=== PATIENT | female | born 1945 | race Caucasian/White ===

== ENCOUNTER → 2016-09-15 | Outpatient (CLI) | payer MEDICARE ==
[~2016-09-15] MED LIST: ATOR10TA15 PO; CALC1TAB12 PO; CALC600T7 PO; DICL1GEL7 TOPICAL; DICL1SOL3 TOPICAL; ESSE250T; ESTR0.5T3 PO; FEXO180T PO; FEXO1TAB97 PO; FLUT50SP EACH NARE; LEVO88TA2 PO; MAGN250T2 PO; MECL-62 PO; METR500T10 PO; MULTTAB67 PO; PLAQ200T PO; PREM0.45 PO; RANI150C PO; VITA100018 PO; VITAL REDS PO; [UNRECOGNIZED DRUG - CODE] PO; [UNRECOGNIZED DRUG - CODE] TOPICAL; [UNRECOGNIZED DRUG - OTHER] PO
[2016-09-15 09:26] LABS: FREE T4 1.1 NG/DL (0.76-1.46)
== END ==
LOC: CLAB 08:23
DX: E89.0 Postprocedural hypothyroidism (principal); E83.51 Hypocalcemia
CPT/HCPCS: 36415; 82306; 82310; 83970; 84439; 84443

== ENCOUNTER 2016-11-15 12:09 | Emergency (ER) | payer MEDICARE ==
[~2016-11-15] VITALS: Ht 165.1 cm; Wt 87.0 kg
[~2016-11-15 12:09] MED LIST changes: -CALC600T7 PO; -DICL1GEL7 TOPICAL; -DICL1SOL3 TOPICAL; -ESSE250T; -ESTR0.5T3 PO; -FEXO180T PO; -MAGN250T2 PO; -PLAQ200T PO; -VITAL REDS PO; -[UNRECOGNIZED DRUG - CODE] PO; -[UNRECOGNIZED DRUG - OTHER] PO
[2016-11-15 12:11] VITALS: BP 182/85; PULSE 82; RESP 16; TEMP 97.3; O2SAT 98
[2016-11-15] MEDS ORDERED: SODIUM CHLOR 0.9% 1000 ML INJ 1,000 ML IV ONE (13:05)
--- NOTE | 2016-11-15 13:05 | PD ---
HPI Chief Complaint: General Weakness Time Seen by Provider: 13:00 Travel History International Travel<30 days: No Contact w/Intl Traveler<30days: No Traveled to known affect area: No History of Present Illness HPI 71-year-old female presents the emergency department with generalized weakness and lightheadedness with standing which she states started last . Patient states she's been taking a supplement which "makes her urinate" for approximately 1 month, which may be to blame. Patient has history of parathyroid and thyroid disease for which she takes Synthroid and high-dose calcium and vitamin D. Her only other medication is Lipitor. She denies pain, chest pain, shortness of breath, fever, chills, urinary symptoms other than frequency, or abdominal pain. Patient states she felt so weak this morning she couldn't lift her ipad. Patient has no nausea or vomiting. She hasn't no diarrhea. She is allergic to Celebrex, Compazine, Neosporin, sulfa, and hair dye. PFSH Past Medical History Arthritis: No Asthma: No Autoimmune Disease: No Blood Disorders: No Heart Rhythm Problems: No Cancer: No Cardiovascular Problems: Yes ([id number]) High Cholesterol: Yes (NO-MEDS) Chemotherapy: No Chest Pain: No Congestive Heart Failure: No COPD: No Cerebrovascular Accident: No Endocrine: No GERD: Yes Glaucoma: No Genitourinary: No Headaches: No Hepatitis: Yes (1989) Hiatal Hernia: No Hypertension: Yes Immune Disorder: No Musculoskeletal: No Neurologic: No Psychiatric: No Reproductive: No Respiratory: No Migraines: No Myocardial Infarction: No Radiation Therapy: No Seizures: No Sickle Cell Disease: No Sleep Apnea: No Ulcer: No Past Surgical History Abdominal Surgery: Yes (THIS ADM) AICD: Yes (REFLUX) Appendectomy: No Arteriovenous Shunt: No Cardiac Surgery: Yes (HTN=CHOLESTEROL) Cholecystectomy: No Ear Surgery: No Endocrine Surgery: No Eye Surgery: No Genitourinary Surgery: No Gynecologic Surgery: Yes (D+C) Joint Replacement: No Oral Surgery: No Pacemaker: No Thoracic Surgery: No Social History Alcohol Use: Yes ([id number]) Tobacco Use: No Substance Use: No Allergies-Medications (Allergen,Severity, Reaction): Coded Allergies: Celebrex (Verified Allergy, Intermediate, RASH, 08/16/16) Rash all over Compazine (Verified Allergy, Intermediate, HYPOTENSION, 08/16/16) Neosporin (Verified Allergy, Intermediate, Rash, 08/16/16) Sulfa (Verified Allergy, Intermediate, RASH, 08/16/16) Rash all over Uncoded Allergies: hair dye (Adverse Reaction, Intermediate, itiching, 08/29/13) Reported Meds & Prescriptions Reported Meds & Active Scripts Active Reported Fexofenadine (Fexofenadine HCl) 180 Mg Tab 360 Mg PO Q12HR Adoxa (Doxycycline (Monohydrate)) 50 Mg Tab 25 Mg PO BID Magnesium 250 Mg Tab 250 Mg PO DAILY Plaquenil (Hydroxychloroquine Sulfate) 200 Mg Tab 200 Mg PO DAILY Take with food Estrace (Estradiol) 0.5 Mg Tab 0.5 Mg PO HS Calcium/Vitamin D (Calcium Carbonate-Cholecalciferol) 600-400 Mg-Unit Tab 3 Tab PO BID Atorvastatin (Atorvastatin Calcium) 10 Mg Tab 10 Mg PO DAILY [Prebiothrive] 1 Each PO DAILY [Vital Reds] 1 Each PO DAILY Ranitidine (Ranitidine HCl) 150 Mg Cap 150 Mg PO BID Levothyroxine (Levothyroxine Sodium) 88 Mcg Tab 88 Mcg PO DAILY Vitamin D3 (Cholecalciferol) 1,000 Unit Tab 1,000 Units PO DAILY Meclizine (Meclizine HCl) 25 Mg Tab 25 Mg PO Q8HR PRN Fluticasone Nasal [place] 50 Mcg/Act Naspr 2 [place] EACH NARE DAILY 50 mcg/spray Temovate Topical (Clobetasol Propionate) 0.05% Soln 1 Applic TOPICAL DAILY PRN Review of Systems Except as stated in HPI: all other systems reviewed are Neg General / Constitutional: No: Fever, Chills, Weight Gain, Weight Loss Eyes: No: Visual changes HENT: No: Headaches, Sore Throat, Rhinitis, Rhinorrhea, Congestion, Nosebleed, Neck Stiffness, Neck Pain, Ear Discharge, Earache Cardiovascular: No: Chest Pain or Discomfort, Palpitations, Irregular Rhythm, Tachycardia, Diaphoresis, Syncope, Dyspnea on exertion, Claudication Respiratory: No: Cough, Shortness of Breath, Wheezing Gastrointestinal: No: Nausea, Vomiting, Diarrhea, Abdominal Pain Genitourinary: Positive: Frequency, No: Urgency, Dysuria, Nocturia, Hematuria , Decreased Urinary Output Musculoskeletal: Positive: Weakness, No: Myalgias, Arthralgias, Limited ROM, Pain Skin: No Rash Neurologic: No: Weakness, Dizziness, Syncope, Focal Abnormalities, Coordination Problem, Tremor, Ataxia, Headache, Change in Mentation, Slurred Speech, Paresthesia, Incontinence, Seizures, Sensory Disturbance Psychiatric: No: Depression Endocrine: No: Polydipsia Hematologic/Lymphatic: No: Easy Bruising Physical Exam Narrative GENERAL: Patient is ambulatory to the room in no acute distress. SKIN: Warm and dry. Normal color. Normal turgor. HEAD: Atraumatic. Normocephalic. EYES: Pupils equal and round. No scleral icterus. No injection or drainage. ENT: No nasal bleeding or discharge. Mucous membranes pink and moist. Pharynx is unremarkable. NECK: Trachea midline. Neck is supple nontender without palpable thyroid. CARDIOVASCULAR: Regular rate and rhythm. No murmurs gallops or rubs. RESPIRATORY: No accessory muscle use. Clear to auscultation. Breath sounds equal bilaterally. GASTROINTESTINAL: Abdomen soft, non-tender, nondistended. Hepatic and splenic margins not palpable. MUSCULOSKELETAL: Extremities without clubbing, cyanosis, or edema. No obvious deformities. NEUROLOGICAL: Awake and alert. No obvious cranial nerve deficits. Motor grossly within normal limits. Five out of 5 muscle strength in the arms and legs. Normal speech. PSYCHIATRIC: Appropriate mood and affect; insight and judgment normal. Data Data Last Documented VS Vital Signs Date Time Temp Pulse Resp B/P Pulse Ox O2 Delivery O2 Flow Rate FiO2 11/15/16 14:19 68 16 187/84 99 Room Air 11/15/16 12:11 97.3 Orders Electrocardiogram (11/15/16 13:05) Complete Blood Count With Diff (11/15/16 13:05) Comprehensive Metabolic Panel (11/15/16 13:05) Magnesium (Mg) (11/15/16 13:05) Ckmb (Isoenzyme) Profile (11/15/16 13:05) Troponin I (11/15/16 13:05) Act Partial Throm Time (Ptt) (11/15/16 13:05) Prothrombin Time / Inr (Pt) (11/15/16 13:05) Urinalysis - C+S If Indicated (11/15/16 13:05) Chest, Single Ap (11/15/16 13:05) Blood Glucose (11/15/16 13:05) Ecg Monitoring (11/15/16 13:05) Iv Access Insert/Monitor (11/15/16 13:05) Oximetry (11/15/16 13:05) Sodium Chloride 0.9% Flush (Ns Flush) (11/15/16 13:15) Sodium Chlor 0.9% 1000 Ml Inj (Ns 1000 M (11/15/16 13:05) Orthostatic Vital Signs (11/15/16 13:05) Thyroid Stimulating Hormone (11/15/16 13:07) Labs Laboratory Tests Test 11/15/16 11/15/16 13:15 14:30 White Blood Count 7.0 TH/MM3 Red Blood Count 5.08 MIL/MM3 Hemoglobin 15.3 GM/DL Hematocrit 44.0 % Mean Corpuscular Volume 86.6 FL Mean Corpuscular Hemoglobin 30.2 PG Mean Corpuscular Hemoglobin 34.9 % Concent Red Cell Distribution Width 13.1 % Platelet Count 244 TH/MM3 Mean Platelet Volume 8.1 FL Neutrophils (%) (Auto) 70.0 % Lymphocytes (%) (Auto) 18.6 % Monocytes (%) (Auto) 9.6 % Eosinophils (%) (Auto) 0.7 % Basophils (%) (Auto) 1.1 % Neutrophils # (Auto) 4.9 TH/MM3 Lymphocytes # (Auto) 1.3 TH/MM3 Monocytes # (Auto) 0.7 TH/MM3 Eosinophils # (Auto) 0.0 TH/MM3 Basophils # (Auto) 0.1 TH/MM3 CBC Comment DIFF FINAL Differential Comment Prothrombin Time 10.6 SEC Prothromb Time International 1.0 RATIO Ratio Activated Partial 26.8 SEC Thromboplast Time Sodium Level 140 MEQ/L Potassium Level 3.8 MEQ/L Chloride Level 102 MEQ/L Carbon Dioxide Level 29.0 MEQ/L Anion Gap 9 MEQ/L Blood Urea Nitrogen 11 MG/DL Creatinine 0.78 MG/DL Estimat Glomerular Filtration 72 ML/MIN Rate Random Glucose 95 MG/DL Calcium Level 8.9 MG/DL Magnesium Level 2.0 MG/DL Total Bilirubin 0.4 MG/DL Aspartate Amino Transf 21 U/L (AST/SGOT) Alanine Aminotransferase 30 U/L (ALT/SGPT) Alkaline Phosphatase 60 U/L Total Creatine Kinase 75 U/L Troponin I LESS THAN 0.02 NG/ML Total Protein 8.0 GM/DL Albumin 4.0 GM/DL Thyroid Stimulating Hormone 1.720 uIU/ML 3rd Gen Urine Color LIGHT-YELLOW Urine Turbidity CLEAR Urine pH 5.5 Urine Specific [place] 1.005 Urine Protein NEG mg/dL Urine Glucose (UA) NEG mg/dL Urine Ketones NEG mg/dL Urine Occult Blood NEG Urine Nitrite NEG Urine Bilirubin NEG Urine Urobilinogen LESS THAN 2.0 MG/DL Urine Leukocyte Esterase MOD Urine RBC LESS THAN 1 /hpf Urine WBC 3 /hpf Urine Transitional Epithelial <1 /hpf Cells Urine Bacteria RARE /hpf Microscopic Urinalysis Comment CULT NOT INDICATED MDM Medical Decision Making Medical Screen Exam Complete: Yes Emergency Medical Condition: Yes Differential Diagnosis Electrolyte imbalance. Dehydration. Weakness. Hypothyroidism. Narrative Course Patient is medically stable at time of exam. EKG is performed showing normal sinus rhythm at 66 bpm without significant changes. This was reviewed with Dr. Quintero. Labs ordered including a fingerstick glucose, CBC, CMP, TSH, troponin, magnesium and urinalysis. Chest x-ray is performed showing no significant findings are radiologist. Orthostatic vital signs are performed. Patient is given 1000 mL stone normal saline bolus IV. Labs show normal CBC, normal CMP, troponin of less than 0.02, and TSH is normal at 1.72. Urinalysis is unremarkable. Patient is felt stable to be discharged home with follow-up with her primary care physician. I recommend the patient that she stop any [id number] supplements. She should hydrate and follow up as needed. Diagnosis Primary Impression: Weakness generalized Additional Impression: Dehydration, mild Referrals: Primary Care Physician Patient Instructions: Dehydration (ED), General Instructions Additional Instructions: All labs and testing are within normal limits. Patient is felt stable to be discharged home with follow-up with her primary care physician. I recommend the patient that she stop any [id number] supplements. She should hydrate and follow up as needed. Med/Other Pt SpecificInfo: No Meds Exist/No RX given Disposition: DISCHARGE HOME Condition: Stable aAshish Kaiser Nov 15, 2016 13:05
[2016-11-15 13:09] VITALS: O2SAT 99
[2016-11-15] MEDS ORDERED: SODIUM CHLORIDE 0.9% FLUSH 5 ML FLUSH IVF PRN (13:15)
[2016-11-15 13:29] LABS: AUTOMATED NEUTROPHIL # 4.9 TH/MM3 (1.8-7.7); BASOPHIL # 0.1 TH/MM3 (0-0.2); BASOPHIL % 1.1 % (0.0-2.0); EOSINOPHIL % 0.7 % (0.0-4.0); HEMO FLAGS DIFF FINAL; LYMPH % 18.6 % (9.0-44.0); LYMPHOCYTE # 1.3 TH/MM3 (1.0-4.8); MEAN CELL VOLUME 86.6 FL (80.0-100.0); MEAN CORPUSCULAR HEMOGLOBIN 30.2 PG (27.0-34.0); MEAN CORPUSCULAR HGB CONC 34.9 % (32.0-36.0); MONO % 9.6 % (0.0-8.0); PLATELET COUNT 244 TH/MM3 (150-450); RED BLOOD COUNT 5.08 MIL/MM3 (4.00-5.30); RED CELL DISTRIBUTION WIDTH 13.1 % (11.6-17.2)
[2016-11-15 13:38] LABS: APTT (PATIENT) 26.8 SEC (24.3-30.1); PROTHROMBIN TIME - PATIENT 10.6 SEC (9.8-11.6)
[2016-11-15 13:54] LABS: ALT (GPT) 30 U/L (10-53); ANION GAP 9 MEQ/L (5-15); AST (GOT) 21 U/L (15-37); BLOOD UREA NITROGEN 11 MG/DL (7-18); CHLORIDE 102 MEQ/L (98-107); GLOMERULAR FILTRATION RATE 72 ML/MIN (>89); POTASSIUM 3.8 MEQ/L (3.5-5.1); SODIUM (NA) 140 MEQ/L (136-145)
[2016-11-15 13:58] LABS: ALKALINE PHOSPHATASE 60 U/L (45-117); TOTAL BILIRUBIN ADULT 0.4 MG/DL (0.2-1.0)
--- NOTE | 2016-11-15 14:03 | RADRPT ---
EXAM DATE/TIME: 11/15/2016 13:15 [facility] COMPARISON: No previous studies available for comparison. INDICATIONS : Chest palpitations, chest pains left side. MEDICAL HISTORY : None. SURGICAL HISTORY : None. ENCOUNTER: Initial ACUITY: 2 days PAIN SCORE: 6/10 LOCATION: Left chest FINDINGS: A single view of the chest demonstrates the lungs to be symmetrically aerated without evidence of mas s, infiltrate or effusion. The cardiomediastinal contours are unremarkable. Osseous structures are intact. CONCLUSION: No acute disease. Brian Charles MD on November 15, 2016 at 14:01 Board Certified Radiologist. This report was verified electronically.
[2016-11-15 14:19] VITALS: BP 187/84; PULSE 68; RESP 16; O2SAT 99
[2016-11-15 14:23] LABS: CREATINE KINASE 75 U/L (26-192)
[2016-11-15] MEDS ORDERED: VITAL REDS PO (14:41)
[2016-11-15] MEDS ORDERED: [UNRECOGNIZED DRUG - OTHER] PO (14:41)
[2016-11-15] MEDS ORDERED: ATOR10TA15 PO (14:43)
[2016-11-15] MEDS ORDERED: CALC600T7 PO (14:50)
[2016-11-15] MEDS ORDERED: ESTR0.5T3 PO (14:50)
[2016-11-15] MEDS ORDERED: MAGN250T2 PO (14:51)
[2016-11-15] MEDS ORDERED: PLAQ200T PO (14:51)
[2016-11-15] MEDS ORDERED: ESSE250T (14:51)
[2016-11-15] MEDS ORDERED: [UNRECOGNIZED DRUG - CODE] PO (14:53)
[2016-11-15] MEDS ORDERED: FEXO180T PO (15:00)
[2016-11-15 15:02] LABS: BACTERIA, URINE RARE /hpf; BLOOD, URINE NEG (NEG); COMMENT (UR) CULT NOT INDICATED; CULTURE IF INDICATED CULT NOT INDICATED; GLUCOSE,URINE NEG (NEG); KETONE, URINE NEG (NEG); NITRITE,URINE NEG (NEG); PH, URINE 5.5 (5.0-8.5); TRANSITIONAL EPI CELLS, URINE <1 /hpf; URINE COLOR LIGHT-YELLOW (YELLW/STRAW)
[2016-11-15 16:09] VITALS: BP 172/79; PULSE 69; RESP 16; O2SAT 99
--- NOTE | 2016-11-16 15:45 | EKG ---
Date Performed: 11/15/2016 Time Performed: 13:21:39 PTAGE: 71 years EKG: Sinus rhythm NORMAL ECG PREVIOUS TRACING : 09/28/2006 09.51 No significant change from previous tracing noted. DOCTOR: Thomas Alonso Interpretating Date/Time 11/16/2016 15:43:35
[2017-01-04] MEDS ORDERED: FLUT50SP EACH NARE (15:14)
[2017-02-01] MEDS ORDERED: DICL1SOL3 TOPICAL (14:52)
[2017-02-14] MEDS ORDERED: DICL1GEL7 TOPICAL (10:38)
== END 2016-11-15 16:10 | disposition home or self-care (01) ==
LOC: NEPE 12:09
DX: E86.0 Dehydration (principal); R53.1 Weakness; I10 Essential (primary) hypertension
CPT/HCPCS: 71010; 80053; 81001; 82550; 83735; 84443; 84484; 85025; 85610; 85730; 93005; 96360; 99284; J7030

== ENCOUNTER → 2016-11-25 | Outpatient (CLI) | payer MEDICARE ==
[~2016-11-25] MED LIST changes: -CALC1TAB12 PO; +CALC600T7 PO; +DICL1GEL7 TOPICAL; +DICL1SOL3 TOPICAL; +ESTR0.5T3 PO; +FEXO180T PO; -FEXO1TAB97 PO; +MAGN250T2 PO; -METR500T10 PO; -MULTTAB67 PO; +PLAQ200T PO; -PREM0.45 PO; +VITAL REDS PO; +[UNRECOGNIZED DRUG - CODE] PO; +[UNRECOGNIZED DRUG - OTHER] PO
[2016-11-25 13:51] LABS: AUTOMATED NEUTROPHIL # 2.7 TH/MM3 (1.8-7.7); BASOPHIL # 0.1 TH/MM3 (0-0.2); BASOPHIL % 1.3 % (0.0-2.0); EOSINOPHIL # 0.1 TH/MM3 (0-0.4); EOSINOPHIL % 1.6 % (0.0-4.0); HEMATOCRIT 41.7 % (35.0-46.0); HEMO FLAGS DIFF FINAL; LYMPH % 24.2 % (9.0-44.0); MEAN CELL VOLUME 87.1 FL (80.0-100.0); MEAN CORPUSCULAR HEMOGLOBIN 29.5 PG (27.0-34.0); MEAN CORPUSCULAR HGB CONC 33.8 % (32.0-36.0); MONO % 9.1 % (0.0-8.0); NEUT % 63.8 % (16.0-70.0); PLATELET COUNT 225 TH/MM3 (150-450); RED BLOOD COUNT 4.79 MIL/MM3 (4.00-5.30); RED CELL DISTRIBUTION WIDTH 13.2 % (11.6-17.2); WHITE BLOOD COUNT 4.2 TH/MM3 (4.0-11.0)
[2016-11-25 14:32] LABS: ALKALINE PHOSPHATASE 53 U/L (45-117); ALT (GPT) 30 U/L (10-53); ANION GAP 6 MEQ/L (5-15); AST (GOT) 23 U/L (15-37); BICARBONATE 29.4 MEQ/L (21.0-32.0); BLOOD UREA NITROGEN 8 MG/DL (7-18); CHLORIDE 106 MEQ/L (98-107); GLOMERULAR FILTRATION RATE 82 ML/MIN (>89); GLUCOSE,FASTING 93 MG/DL (74-99); POTASSIUM 3.8 MEQ/L (3.5-5.1); SODIUM (NA) 141 MEQ/L (136-145); TOTAL BILIRUBIN ADULT 0.5 MG/DL (0.2-1.0)
[2016-11-29 15:52] LABS: ANA IFA TITER ND titer (()); ANA SER QL NEGATIVE (NEGATIVE); SJOGRENS AB SSA <1.0 NEG AI (<1.0 NEGATIVE); SJOGRENS AB SSB <1.0 NEG AI (<1.0 NEGATIVE)
[2016-11-30 03:51] LABS: DS DNA AB(CRITHIDIA) NEGATIVE (NEGATIVE); DS DNA AB(CRITHIDIA)TITER ND (<1:10)
[2016-11-30 15:54] LABS: RHEUMATOID FACTOR 10 IU/mL (<14)
== END ==
LOC: CLAB 13:02
PROVIDERS: ATTEND Allergy & Immunology
DX: L50.8 Other urticaria (principal)
CPT/HCPCS: 36415; 80053; 85025; 86038; 86039; 86147; 86235; 86255; 86256; 86431

== ENCOUNTER → 2017-01-14 | Outpatient (CLI) | payer MEDICARE ==
[2017-01-14 11:30] LABS: FREE T4 1.39 NG/DL (0.76-1.46)
== END ==
LOC: CLAB 10:06
DX: E89.0 Postprocedural hypothyroidism (principal); E21.0 Primary hyperparathyroidism; E83.51 Hypocalcemia
CPT/HCPCS: 36415; 82306; 82310; 84439; 84443

== ENCOUNTER → 2017-01-27 | Outpatient (CLI) | payer MEDICARE ==
[2017-01-27 10:38] LABS: AUTOMATED NEUTROPHIL # 2.9 TH/MM3 (1.8-7.7); BASOPHIL # 0.1 TH/MM3 (0-0.2); BASOPHIL % 1.3 % (0.0-2.0); EOSINOPHIL # 0.1 TH/MM3 (0-0.4); EOSINOPHIL % 1.9 % (0.0-4.0); HEMATOCRIT 39.4 % (35.0-46.0); HEMO FLAGS DIFF FINAL; LYMPH % 24.3 % (9.0-44.0); LYMPHOCYTE # 1.1 TH/MM3 (1.0-4.8); MEAN CELL VOLUME 87.7 FL (80.0-100.0); MEAN CORPUSCULAR HEMOGLOBIN 29.6 PG (27.0-34.0); MEAN CORPUSCULAR HGB CONC 33.8 % (32.0-36.0); MONO % 10.5 % (0.0-8.0); PLATELET COUNT 201 TH/MM3 (150-450); RED CELL DISTRIBUTION WIDTH 13.4 % (11.6-17.2); WHITE BLOOD COUNT 4.6 TH/MM3 (4.0-11.0)
[2017-01-27 11:00] LABS: ALT (GPT) 31 U/L (10-53); ANION GAP 6 MEQ/L (5-15); AST (GOT) 25 U/L (15-37); BICARBONATE 28.5 MEQ/L (21.0-32.0); BLOOD UREA NITROGEN 11 MG/DL (7-18); CHLORIDE 109 MEQ/L (98-107); GLOMERULAR FILTRATION RATE 83 ML/MIN (>89); GLUCOSE,FASTING 82 MG/DL (74-99); POTASSIUM 3.9 MEQ/L (3.5-5.1); SODIUM (NA) 143 MEQ/L (136-145)
[2017-01-27 11:02] LABS: ALKALINE PHOSPHATASE 54 U/L (45-117); TOTAL BILIRUBIN ADULT 0.4 MG/DL (0.2-1.0)
== END ==
LOC: CLAB 10:09
PROVIDERS: ATTEND Allergy & Immunology
DX: R76.8 Other specified abnormal immunological findings in serum (principal)
CPT/HCPCS: 36415; 80053; 85025; 86803; 87340

== ENCOUNTER → 2017-02-11 | Outpatient (CLI) | payer MEDICARE ==
[2017-02-11 09:14] LABS: AUTOMATED NEUTROPHIL # 2.6 TH/MM3 (1.8-7.7); BASOPHIL # 0.1 TH/MM3 (0-0.2); BASOPHIL % 1.1 % (0.0-2.0); EOSINOPHIL # 0.1 TH/MM3 (0-0.4); EOSINOPHIL % 2.2 % (0.0-4.0); HEMATOCRIT 39.5 % (35.0-46.0); HEMO FLAGS DIFF FINAL; LYMPH % 29.5 % (9.0-44.0); LYMPHOCYTE # 1.4 TH/MM3 (1.0-4.8); MEAN CELL VOLUME 87.2 FL (80.0-100.0); MEAN CORPUSCULAR HEMOGLOBIN 30.5 PG (27.0-34.0); MEAN CORPUSCULAR HGB CONC 34.9 % (32.0-36.0); MONO % 10.7 % (0.0-8.0); NEUT % 56.5 % (16.0-70.0); PLATELET COUNT 214 TH/MM3 (150-450); RED BLOOD COUNT 4.53 MIL/MM3 (4.00-5.30); RED CELL DISTRIBUTION WIDTH 13.6 % (11.6-17.2); WHITE BLOOD COUNT 4.6 TH/MM3 (4.0-11.0)
[2017-02-11 09:26] LABS: ANION GAP 7 MEQ/L (5-15); AST (GOT) 23 U/L (15-37); BICARBONATE 27.7 MEQ/L (21.0-32.0); BLOOD UREA NITROGEN 15 MG/DL (7-18); CHLORIDE 105 MEQ/L (98-107); GLOMERULAR FILTRATION RATE 79 ML/MIN (>89); GLUCOSE,FASTING 84 MG/DL (74-99); POTASSIUM 3.8 MEQ/L (3.5-5.1); SODIUM (NA) 140 MEQ/L (136-145)
[2017-02-11 09:27] LABS: ALT (GPT) 34 U/L (10-53)
[2017-02-11 09:29] LABS: ALKALINE PHOSPHATASE 50 U/L (45-117); LDL CHOLESTEROL 110 MG/DL (0-99); TOTAL BILIRUBIN ADULT 0.5 MG/DL (0.2-1.0)
== END ==
LOC: CLAB 08:21
PROVIDERS: ATTEND Family Medicine
DX: E78.5 Hyperlipidemia, unspecified (principal); D64.9 Anemia, unspecified
CPT/HCPCS: 36415; 80053; 80061; 85025

== ENCOUNTER → 2017-04-28 | Outpatient (CLI) | payer MEDICARE ==
[~2017-04-28] MED LIST changes: -DICL1SOL3 TOPICAL
[2017-04-28 09:15] LABS: AUTOMATED NEUTROPHIL # 3.2 TH/MM3 (1.8-7.7); BASOPHIL # 0.1 TH/MM3 (0-0.2); BASOPHIL % 1.2 % (0.0-2.0); EOSINOPHIL # 0.2 TH/MM3 (0-0.4); EOSINOPHIL % 3.2 % (0.0-4.0); HEMATOCRIT 40.5 % (35.0-46.0); HEMO FLAGS DIFF FINAL; LYMPHOCYTE # 1.3 TH/MM3 (1.0-4.8); MEAN CORPUSCULAR HEMOGLOBIN 30.6 PG (27.0-34.0); MONO % 10.6 % (0.0-8.0); PLATELET COUNT 220 TH/MM3 (150-450); RED BLOOD COUNT 4.49 MIL/MM3 (4.00-5.30); RED CELL DISTRIBUTION WIDTH 13.3 % (11.6-17.2); WHITE BLOOD COUNT 5.3 TH/MM3 (4.0-11.0)
[2017-04-28 09:45] LABS: ANION GAP 6 MEQ/L (5-15); AST (GOT) 27 U/L (15-37); BICARBONATE 28.8 MEQ/L (21.0-32.0); BLOOD UREA NITROGEN 13 MG/DL (7-18); CHLORIDE 106 MEQ/L (98-107); GLOMERULAR FILTRATION RATE 82 ML/MIN (>89); GLUCOSE,FASTING 89 MG/DL (74-99); SODIUM (NA) 141 MEQ/L (136-145)
[2017-04-28 09:51] LABS: ALKALINE PHOSPHATASE 63 U/L (45-117); ALT (GPT) 34 U/L (10-53); TOTAL BILIRUBIN ADULT 0.5 MG/DL (0.2-1.0)
== END ==
LOC: CLAB 08:14
PROVIDERS: ATTEND Allergy & Immunology
DX: R76.8 Other specified abnormal immunological findings in serum (principal); Z79.899 Other long term (current) drug therapy
CPT/HCPCS: 36415; 80053; 85025; 86140

== ENCOUNTER → 2017-05-31 | Outpatient (CLI) | payer MEDICARE ==
[2017-05-31 09:30] LABS: FREE T4 1.18 NG/DL (0.76-1.46)
== END ==
LOC: CLAB 08:33
DX: E89.0 Postprocedural hypothyroidism (principal); E83.51 Hypocalcemia
CPT/HCPCS: 36415; 82306; 82310; 84439; 84443

== ENCOUNTER → 2017-08-08 | Outpatient (CLI) | payer MEDICARE ==
[2017-08-08 09:26] LABS: ANION GAP 4 MEQ/L (5-15); AST (GOT) 20 U/L (15-37); BLOOD UREA NITROGEN 8 MG/DL (7-18); CHLORIDE 106 MEQ/L (98-107); GLOMERULAR FILTRATION RATE 82 ML/MIN (>89); GLUCOSE,FASTING 87 MG/DL (74-99); POTASSIUM 3.9 MEQ/L (3.5-5.1); SODIUM (NA) 140 MEQ/L (136-145)
[2017-08-08 09:29] LABS: ALKALINE PHOSPHATASE 64 U/L (45-117); ALT (GPT) 32 U/L (10-53); HDL CHOLESTEROL 68.4 MG/DL (40.0-60.0); LDL CHOLESTEROL 78 MG/DL (0-99); TOTAL BILIRUBIN ADULT 0.4 MG/DL (0.2-1.0)
== END ==
LOC: CLAB 08:37
PROVIDERS: ATTEND Family Medicine
DX: E78.5 Hyperlipidemia, unspecified (principal)
CPT/HCPCS: 36415; 80053; 80061

== ENCOUNTER → 2017-08-12 | Outpatient (CLI) | payer MEDICARE ==
[~2017-08-12] MED LIST changes: +BENZ100 PO; +MEDR4PAK PO; +TRIA40P I-ARTICULR
[2017-08-12 11:05] LABS: AUTOMATED NEUTROPHIL # 7.8 TH/MM3 (1.8-7.7); BASOPHIL % 0.4 % (0.0-2.0); EOSINOPHIL % 0.2 % (0.0-4.0); HEMATOCRIT 40.2 % (35.0-46.0); HEMO FLAGS DIFF FINAL; LYMPH % 12.9 % (9.0-44.0); LYMPHOCYTE # 1.3 TH/MM3 (1.0-4.8); MEAN CELL VOLUME 88.3 FL (80.0-100.0); MEAN CORPUSCULAR HEMOGLOBIN 30.2 PG (27.0-34.0); MEAN CORPUSCULAR HGB CONC 34.2 % (32.0-36.0); MONO % 7.3 % (0.0-8.0); NEUT % 79.2 % (16.0-70.0); PLATELET COUNT 235 TH/MM3 (150-450); RED BLOOD COUNT 4.55 MIL/MM3 (4.00-5.30); RED CELL DISTRIBUTION WIDTH 13.7 % (11.6-17.2); WHITE BLOOD COUNT 9.9 TH/MM3 (4.0-11.0)
[2017-08-12 11:32] LABS: ANION GAP 6 MEQ/L (5-15); AST (GOT) 24 U/L (15-37); BICARBONATE 26.3 MEQ/L (21.0-32.0); BLOOD UREA NITROGEN 14 MG/DL (7-18); CHLORIDE 108 MEQ/L (98-107); GLOMERULAR FILTRATION RATE 85 ML/MIN (>89); GLUCOSE,FASTING 88 MG/DL (74-99); SODIUM (NA) 140 MEQ/L (136-145)
[2017-08-12 11:36] LABS: ALKALINE PHOSPHATASE 65 U/L (45-117); ALT (GPT) 30 U/L (10-53); TOTAL BILIRUBIN ADULT 0.4 MG/DL (0.2-1.0)
== END ==
LOC: CLAB 10:18
PROVIDERS: ATTEND Allergy & Immunology
DX: R76.8 Other specified abnormal immunological findings in serum (principal); M25.512 Pain in left shoulder
CPT/HCPCS: 36415; 80053; 85025; 86225

== ENCOUNTER → 2017-10-25 | Outpatient (CLI) | payer MEDICARE ==
[~2017-10-25] MED LIST changes: +PANT20 PO; -TRIA40P I-ARTICULR; -[UNRECOGNIZED DRUG - CODE] PO
[2017-10-25 13:59] LABS: AUTOMATED NEUTROPHIL # 4.2 TH/MM3 (1.8-7.7); BASOPHIL # 0.1 TH/MM3 (0-0.2); BASOPHIL % 1.4 % (0.0-2.0); EOSINOPHIL # 0.1 TH/MM3 (0-0.4); EOSINOPHIL % 1.4 % (0.0-4.0); HEMATOCRIT 40.2 % (35.0-46.0); HEMOGLOBIN 13.8 GM/DL (11.6-15.3); LYMPH % 20.6 % (9.0-44.0); LYMPHOCYTE # 1.3 TH/MM3 (1.0-4.8); MEAN CELL VOLUME 88.1 FL (80.0-100.0); MEAN CORPUSCULAR HEMOGLOBIN 30.3 PG (27.0-34.0); MEAN CORPUSCULAR HGB CONC 34.4 % (32.0-36.0); MONO % 8.2 % (0.0-8.0); MONOCYTE # 0.5 TH/MM3 (0-0.9); NEUT % 68.4 % (16.0-70.0); PLATELET COUNT 265 TH/MM3 (150-450); RED BLOOD COUNT 4.56 MIL/MM3 (4.00-5.30); RED CELL DISTRIBUTION WIDTH 13.7 % (11.6-17.2); WHITE BLOOD COUNT 6.1 TH/MM3 (4.0-11.0)
[2017-10-25 14:07] LABS: ALBUMIN 3.5 GM/DL (3.4-5.0); AST (GOT) 27 U/L (15-37); BICARBONATE 26.6 MEQ/L (21.0-32.0); BLOOD UREA NITROGEN 10 MG/DL (7-18); CALCIUM 9.2 MG/DL (8.5-10.1); CHLORIDE 106 MEQ/L (98-107); CREATININE 0.72 MG/DL (0.50-1.00); GLOMERULAR FILTRATION RATE 79 ML/MIN (>89); GLUCOSE,FASTING 89 MG/DL (74-99); SODIUM (NA) 141 MEQ/L (136-145)
[2017-10-25 14:10] LABS: ALKALINE PHOSPHATASE 73 U/L (45-117); ALT (GPT) 32 U/L (10-53); TOTAL BILIRUBIN ADULT 0.3 MG/DL (0.2-1.0); TOTAL PROTEIN 7.3 GM/DL (6.4-8.2)
== END ==
LOC: CLAB 13:12
PROVIDERS: ATTEND Allergy & Immunology
DX: R76.8 Other specified abnormal immunological findings in serum (principal)
CPT/HCPCS: 36415; 80053; 85025

== ENCOUNTER → 2017-11-15 | Outpatient (CLI) | payer MEDICARE ==
[2017-11-15 09:25] LABS: CALCIUM 9.1 MG/DL (8.5-10.1)
[2017-11-15 09:40] LABS: FREE T4 1.26 NG/DL (0.76-1.46)
== END ==
LOC: CLAB 08:33
DX: E89.0 Postprocedural hypothyroidism (principal); E83.51 Hypocalcemia
CPT/HCPCS: 36415; 82306; 82310; 84439; 84443

== ENCOUNTER → 2018-02-07 | Outpatient (CLI) | payer MEDICARE ==
[2018-02-07 09:42] LABS: ALBUMIN 3.3 GM/DL (3.4-5.0); BICARBONATE 30.5 MEQ/L (21.0-32.0); BLOOD UREA NITROGEN 9 MG/DL (7-18); CHLORIDE 101 MEQ/L (98-107); GLUCOSE,FASTING 85 MG/DL (74-99); SODIUM (NA) 140 MEQ/L (136-145)
[2018-02-07 10:58] LABS: AST (GOT) 22 U/L (15-37); CREATININE 0.71 MG/DL (0.50-1.00); GLOMERULAR FILTRATION RATE 80 ML/MIN (>89)
[2018-02-07 11:09] LABS: ALKALINE PHOSPHATASE 77 U/L (45-117); ALT (GPT) 26 U/L (10-53); CHOLESTEROL 184 MG/DL (120-200); CHOLESTEROL/ HDL RATIO 2.45 RATIO; HDL CHOLESTEROL 74.9 MG/DL (40.0-60.0); LDL CHOLESTEROL 92 MG/DL (0-99); TOTAL BILIRUBIN ADULT 0.5 MG/DL (0.2-1.0); TOTAL PROTEIN 7.4 GM/DL (6.4-8.2); TRIGLYCERIDES 84 MG/DL (42-150)
== END ==
LOC: CLAB 08:19
PROVIDERS: ATTEND Family Medicine
DX: E78.00 Pure hypercholesterolemia, unspecified (principal); E03.9 Hypothyroidism, unspecified
CPT/HCPCS: 36415; 80053; 80061; 84443